=== PATIENT | female | born 2005 | race African-American/Black ===

== ENCOUNTER 2024-10-30 16:08 | Observation (INO) | payer OTHER, SELFPAY ==
--- NOTE | 2024-10-30 16:08 | OBADM ---
This patient, Harjit Luis, admitted to the OB room OB Post 117 for observation. Patient/family oriented to hospital policies and general routines including ID bracelet, bed and alarms, visiting hours, pain management, procedures, bathroom and other care routines, personal items, smoking policy, room service/diet, and visiting hours. Patient/Family are encouraged to report perceived risks to care and to ask questions if they do not understand what they are told or what they should do.
[2024-10-30 16:25] VITALS: BP 106/62; PULSE 80
[2024-10-30 16:30] VITALS: BMI 24.6
[2024-10-30 16:31] VITALS: BP 96/52; PULSE 84
[2024-10-30 16:47] VITALS: BP 92/79; PULSE 94
[2024-10-30 17:02] VITALS: BP 95/49; PULSE 86
[2024-10-30 17:11] LABS: Add Urine Microscopic? YES; Appearance Urine Cloudy (Clear); Bacteria Urine 1+ /hpf; Bilirubin Urine Negative (Negative); Blood Urine Negative (Negative); Color Urine Yellow (Yellow); Glucose Urine UA Negative (Negative); Ketones Urine Negative (Negative); Leukocyte Esterase Ur 3+ LEU/UL (Negative); Mucus Urine Present /lpf; Need Manual Microscopic Reviewed; Nitrate Urine Negative (Negative); Protein Urine Negative (Negative); RBC Urine 0-2 /hpf (0-2); Squamous Epithelial Cell Urine Few /hpf (Few); Urobilinogen Urine 0.2 mg/dL (<2.0); WBC Urine >100 /hpf (0-3); pH Urine 7.5 (5.0-9.0)
[2024-10-30 17:50] VITALS: TEMP 36.5
[2024-10-30] MEDS: NITROFURANTOIN MONOHYD MACROCR 100 MG CAP PO (17:50)
--- NOTE | 2024-11-25 08:05 | PM.OBTRLD ---
OB - Triage/Final Diagnosis Visit Information Comments/Additional reasons for admission: I have assessed the risk for this patient, Harjit Luis, and determined that she would benefit from observation care. Evaluation Laboratory results: Laboratory Tests 10/30/24 16:47 Urine Color Yellow Urine Appearance Cloudy H Urine pH 7.5 Ur Specific [place] 1.010 Urine Protein Negative Urine Glucose (UA) Negative Urine Ketones Negative Ur Blood (Man) Negative Urine Nitrate Negative Urine Bilirubin Negative Urine Urobilinogen 0.2 Ur Leukocyte Esterase 3+ H Add Ur Microanalysis Reviewed Urine RBC 0-2 Urine WBC >100 H Ur Squamous Epith Cells Few Urine Bacteria 1+ H Urine Casts 3-5 Urine Mucus Present Final Diagnosis (1) False labor: Code(s): O47.9 - False labor, unspecified Status: Acute
== END 2024-10-30 17:50 | disposition home or self-care (01) ==
PROVIDERS: Admitting Provider Obstetrics & Gynecology; Visit Provider Obstetrics & Gynecology
DX: O47.03 False labor before 37 completed weeks of gestation, third trimester (principal); Z3A.31 31 weeks gestation of pregnancy
CPT/HCPCS: 81001; 87086; A9270; G0378; G0379

== ENCOUNTER 2025-11-04 17:29 | Emergency (ER) | payer OTHER, SELFPAY ==
[2025-11-04 17:31] VITALS: BP 91/61; PULSE 83; RESP 16; TEMP 36.4; O2SAT 100
--- OUTSIDE RECORDS SUMMARY | 2025-11-04 17:31 | XMS_ITS | Clinical Summary ---
Author Organization [facility] Address [address] [place] [address] Care Team Providers Care Brilliandeer Looper Name Role Phone Vik Peacock MD Unavailable No, Physician Primary Care Provider [phone] Allergies No known active allergies Medications PNV no.153/FA/om3/d velez/epa/fish ( GUMMIES ORAL) Take 1 tablet/chew tab by mouth daily Active docusate sodium (COLACE) 100 mg capsuleIndicati ons:constipatio n,Stool Softener Take 1 capsule (100 mg total) by mouth 2 (two) times a day 30 capsule 12/22/2024 Active acetaminophen 500 mg capsuleIndicati ons:Pain Take 2 capsules (1,000 mg total) by mouth every 6 (six) hours as needed for pain 60 tablet 12/22/2024 Active ibuprofen (ADVIL,MOTRIN) 600 mg tabletIndicatio ns:Pain Take 1 tablet (600 mg total) by mouth every 6 (six) hours as needed for pain 60 tablet 12/22/2024 Active cyclobenzaprine (FLEXERIL) 5 mg tablet Take 1 tablet (5 mg total) by mouth 3 (three) times a day as needed for muscle spasms 30 tablet 12/22/2024 Active Active Problems Problem Noted Date Diagnosed Date care following vaginal delivery 12/20 Overview (12/22/2024): # ID: Afebrile. No signs/symptoms of infection. #Varicella NI: declines varivax. # Heme: QBL 200 mL. Hemodynamically stable. #ESTEBAN: Diagnosed in 2T labs. Iron studies with low iron and ferritin. S/p iron transfusion 12/01. Admit hgb 9.4, 9.6 PPD1. Will start PO iron every other day. # CV/Pulm: Normotensive with 1 MR BP immediately following delivery, otherwise vital signs stable, within normal limits. CBC/CMP unremarkable. # GI/: Tolerating PO. Voiding spontaneously. #Transaminitis: Noted on admission AST/ALT 51/39, BPs normotensive. Repeat CMP /. # Pain: Controlled with above regimen. # MOC: Desires patch, condoms for bridge . # MOF: . Urine drug screen not indicated. Patient informed of results: N/A. # Post DVT prophylaxis: The patient has the following MAJOR risk factors none and the following MINOR risk factors none. SCDs ordered for VTE prophylaxis. # Disposition: Follow up task sent to [facility] scheduling pool for appointments in 2 and 6 weeks. Desires discharge home today. 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 - Maternal [employer]: found that daughter's 16p12.2 deletion VUS was found to be maternally inherited. Dr. Reyes recommended genetic counseling. Discussed 50% risk of VUS being passed to any children but as it is a VUS, we are not sure if that would cause any disease. Message sent to [facility] Genetics team who cares for her daughter to facilitate GC appt. - 10/27, normal echo and UTD resolved on OB US Plan - Delivery timing and mode should not be impacted by the findings above - desires delivery at [facility]T, IOL at 39 weeks to be scheduled - alter peds at time of induction admit Maternal varicella, non-immune 09/27/2024 Supervision of high-risk , second trime ster 09/27/2024 Overview (11/25/2024): [x] Co-management vs. [] Full MFM Care; [] Red Team [x] Blue Team Referring Provider: Vik Peacock [phone] [] or Medicare Insurance [x] Dating Criteria: [place] 07/04/24 with NAZARIO 12/26/24 [x] Labs: Rh [A+], Ab [negative], Rubella [immune], HIV [non-reactive], HepBSAg [non-reactive], HepBSAb [not done], HepBCAb [not done], RPR [non- reactive], Hep C [non-reactive], Varicella [negative], GC/CT [negative/negative] [x] Aneuploidy Screening: low risk - visualized on her phone [x] Carrier Screening: CF negative [x] Hgb electrophoresis: normal hemoglobin pattern [x] CBC/Hgb: 11.7/37.9/plt 347 [] Early 1hr GTT (if indicated): [x] UCx: 06/09/24: no growth, 10/27- no growth [x] Pap: n/a, <21yo [] LD ASA (if indicated): [] EPDS [ ]; PNBHS referral (if indicated): 2nd Trimester [x] Anatomy ultrasound: anterior placenta, midface hypoplasia, UTDA1 [x] CBC/1hr gtt at 24-28wks: Hgb 8.8, GTT 99 [x] Rhogam at 28 wks (if Rh neg): n/a 3rd Trimester [] CBC/HIV/RPR/T&S: to be completed today [] GBS: to be collected with primary OB at next visit [] GC/CT (if indicated): [] testing: Counseling [x] MOD: IOL scheduled at 39 weeks, 12/19 @ 2300. Desires no students during IOL. [x] Place of delivery: [facility] (patient preference) [x] Epidural: desires to labor w/o epidural. Alternative options discussed. [x] Accepts Blood Products: [] Stop ASA: [x] MOC: patch [x] Method of feeding: breast [x] Gore Seamer (specifically which provider): [x] PP Depression Discussed: [] PP visits scheduled: Vaccines [x] Flu Shot (Jul-Oct): declines [] COVID vaccine: [x] Tdap (27-36wks): 10/07 @ primary OB [x] RSV vaccine (32-36wks): declines [] PP HPV vaccine counseling (<=26 yo): Encounter for supervision of normal in second trimester 07/26/2024 Overview (07/26/2024): 1st Trimester: [x] Dating Criteria: 2T [x] Labs: Rh+, Ab-, RPR NR, HIV NR, HepB NR, STI UCx neg, VZV NI, Rub I 2nd Trimester: [x] Anatomy ultrasound: 07/26/24 complete other than nose, otherwise wnl Defer remainder of care to Dr. Peacock Vaginal candidiasis 06/11/2021 Dentalgia 02/08/2021 Dental infection 02/08/2021 Left wrist tendinitis 12/17/2019 Cervical strain, acute, initial encounter 2019 Urinary tract infection in female 06/27/2019 History of vaginal discharge 06/27/2019 Overview (10/04/2024): She plans to discuss with Dr. Peacock next week and declines exam today. Immunizations Immunization Administration Dates Next Due Varicella 12/21/2024(Deferred: Patient Ref used) Surgical History Surgery Date Site/Laterality Comments NO PAST SURGERIES Medical History Medical History Date Comments Known health problems: none Anemia Family History Medical History Relation Name Comments Cleft palate Daughter Steve Heart defect Daughter Steve ASD and VSD No Known Problems Father Hearing loss Mother right ear, ?res olved Relation Name Status Comments Daughter Steve Alive Father Alive Maternal Grandfather Unknown Maternal Grandmother Unknown Mother Alive Paternal Grandfather Unknown Paternal Grandmother Unknown Social History Tobacco Use Types Packs/Day Years Used Date Smoking Tobacco: Never Cigarettes Smokeless Tobacco: Never Alcohol Use Standard Drinks/Week Comments Not Currently 0 (1 standard drink = 0.6 oz pur e alcohol) [facility] Utilities Answer Date Recorded In the past 12 months has th e electric, gas, oil, or water [employer] threatened to shut off services in your home? No 12/21/2024 Social Connection and Isolation Panel Answer Date Recorded In a typical week, how many times do you talk on the phone with family, friends, or neighbors? More than three times a week 12/21/2024 How often do you get togethe r with friends or relatives? More than three times a week 12/21/2024 How often do you attend [facility] or moravian services? Never 12/21/2024 Do you belong to any clubs o r organizations such as baptism groups, unions, fraternal or athletic groups, or school groups? No 12/21/2024 How often do you attend meet ings of the clubs or organizations you belong to? Never 12/21/2024 Are you , , di vorced, , never , or living with a partner? Never 12/21/2024 AUDIT-C Answer Date Recorded Q1: How often do you have a drink containing alcohol? Never 09/15/2024 Q2: How many drinks containi ng alcohol do you have on a typical day when you are drinking? Patient does not drink Q3: How often do you have si x or more drinks on one occasion? Never 09/15/2024 Overall Financial Resource Strain (CARDIA) Answe r Date Recorded How hard is it for you to pa y for the very basics like food, housing, medical care, and heating? Not hard at all 12/21/2024 PHQ-2 Answer Date Recorded PHQ-2 Total Score (If total score is 3 or more points, staff should administer the PHQ-9) 1 09/15/2024 [facility] - Occupational Stress Questionnaire Answer Date Recorded Do you feel stress - tense, restless, nervous, or anxious, or unable to sleep at night because your mind is troubled all the time - these days? Not at all 09/15/2024 Exercise Vital Sign Answer Date Recorde d On average, how many days pe r week do you engage in moderate to strenuous exercise (like a brisk walk)? 0 days 09/15/2024 On average, how many minutes do you engage in exercise at this level? 0 min 09/15/2024 Hunger Vital Sign Answer Date Recorded Within the past 12 months, y ou worried that your food would run out before you got the money to buy more. Never true 12/21/19 25 Within the past 12 months, t he food you bought just didn't last and you didn't have money to get more. Never true 12/21/2024 PRAPARE - Transportation Answer Date Re corded In the past 12 months, has l ack of transportation kept you from medical appointments or from getting medications? No 12/10 In the past 12 months, has l ack of transportation kept you from meetings, work, or from getting things needed for daily living? No 12/21/2024 Housing Stability Vital Sign Answer Steven e Recorded In the last 12 months, was t here a time when you were not able to pay the mortgage or rent on time? No 12/21/2024 In the past 12 months, how m any times have you moved where you were living? 0 12/21/2024 At any time in the past 12 m [facility], were you homeless or living in a residential (including now)? No 12/21/2024 Personal Safety Answer Date Recorded Have you ever been in or are you currently in a harmful physical or emotional relationship or is someone making you feel afraid or unsafe? Denies 12/19/2024 Comments No Sex and Gender Information Value Date Recorded Sex Assigned at Not on file Legal Sex Female 8:52 PM PUBLIC HEALTH EPIDEMIOLOGIST Gender Identity Not on file Sexual Orientation Not on file Obstetrics History Para Term AB IAB SAB Ectopic Multiple Livin g Live Births 2 2 2 0 2 2 Date Outcome GA Total Labor Labor/2nd/3rd Weight Sex Type Anes PTL Dominique A1 A5 Name Clin 2021 Term 38w 3d 4h 58m 2h 58m/1h 57m/0h 03m 3.004 kg (6 lb 10 oz) F Vag-Sp ont Epidur al N Livin g 9 9 CASSIE ,GIRL CHRIS CAZARES Maged paige, Vik gerard MD Complications:None Delivery Location:[facility] ([facility]) 2024 Term 39w 1d 18h 00m 17h 31m/0h 27m/0h 02m 3.04 kg (6 lb 11.2 oz) F Vagina l Spinal N Livin g 8 9 Mahendra castro, Maty anthony MD Complications:None Delivery Location:[facility] ([facility]LD) Last Filed Vital Signs Vital Sign Reading Time Taken Comments Blood Pressure 121/86 12/22/2024 7:13 AM PUBLIC HEALTH EPIDEMIOLOGIST Pulse 70 12/22/2024 7:13 AM PUBLIC HEALTH EPIDEMIOLOGIST Temperature 36.5 C (97.7 F) 12/22/2024 7:13 AM PUBLIC HEALTH EPIDEMIOLOGIST Respiratory Rate 16 12/22/2024 7:13 AM PUBLIC HEALTH EPIDEMIOLOGIST Oxygen Saturation 97% 12/22/2024 7:13 AM PUBLIC HEALTH EPIDEMIOLOGIST Inhaled Oxygen Concentration - - Weight 79.7 kg (175 lb 11.3 oz) 025 11:42 PM PUBLIC HEALTH EPIDEMIOLOGIST Height 172.7 cm (5' 8) 12/19/2024 11:4 2 PM PUBLIC HEALTH EPIDEMIOLOGIST Body Mass Index 26.72 12/19/2024 11:42 PM PUBLIC HEALTH EPIDEMIOLOGIST Plan of Treatment Health Maintenance Due Date Last Done Comments Cervical Cancer Screening 2004 Meningococcal B Vaccine (2 o f 2 - Bexsero SCDM 2-dose series) 12/19/2020 06/18/2020 Regular Well Visit/Exam 18-64 2022 Chlamydia and Gonorrhea (GC/ CT) Screening 06/11/2022 06/11/2021, 03/19/2020, 12/17/2019 Covid-19 Vaccine (2 - 2024-2 6 season) 2025 04/02/2023 Influenza Vaccine (#1) 2025 10/15/2015 Depression Screening 09/15/2025 09/15/2024 DTaP/Tdap/Td Vaccine (7 - Td or Tdap) 10/07/2031 10/07/2021, 07/20/2015, 04/18/2008, Additional history exists Hepatitis B Screening Completed 2004 , 2004, 2004, Additional history exists Pneumococcal vaccine <65 Completed 005, 2004, 2004, Additional history exists Varicella Vaccines Completed 05/24/2009, 04/17/2005 HPV Vaccines Completed 02/21/2016, 05/2015, 07/20/2015 Meningococcal Vaccine Completed 06/18/2020, 015 Hepatitis C Screening Completed 06/09/2024 Procedures Procedure Name Priority Date/Time Associated Diagnosis Comments HEPATITIS C ANTIBODY Routine 06/09/2024 N. GONORRHOEAE/C. TRACHOMATIS AMPLIFICATION STAT 06/11/2021 9:48 AM CDT from Last 3 Months or Most Recently Relevant to Health Maintenance Results * Hepatitis C antibody Blood (06/09/2024) SCRIBED HCV ab non-reacti ve Blood Vik Peacock MD LAB MICROBIOLOGY - GEN ERAL ORDERABLES Final Result * N. gonorrhoeae/C. trachomatis Amplification Vaginal (06/11/2021 9:48 AM CDT) C. trachomatis Not detected Not detected PARAMJIT HAMILTON (DHRUV) Comment:Testing performed by : [facility], [address] [place] [address]., [id number] N. gonorrhoeae Not detected Not detected PARAMJIT HAMILTON (DHRUV) Comment: Testing performed by the [facility]. This assay detects Chlamydia trachomatis and Neisseria gonorrhoeae by nucleic acid amplification testing (NAAT). This test is approved by the [place] Food and Drug Administration and the performance characteristics have been verified by the laboratory. The performance characteristics of this test have not been evaluated in women or individuals less than 16 years of age. Testing performed by: [facility], [address] [place] [address], [place]., [address] Vaginal (None) 06/11/2021 9: 48 AM CDT 06/11/2021 2:18 PM CDT Antoni GRIGSBY LAB MICROBIOLOGY - GENERAL O RDERABLES Final Result [facility] ([facility] [place]) [address] [facility] Department [place] [address] from Last 3 Months or Most Recently Relevant to Health Maintenance [place] [address] [place] [address] [facility] Advance Directives For more information, please contact: [phone] * Full Code (Latest Code Status on File) Date Activated Date Inactivated Comments 12/20/2024 7:59 PM 12/22/2024 6:47 PM * Full Code Date Activated Date Inactivated Comments 12/19/2024 11:44 PM 12/20/2024 7:59 PM Full CPR in case of cardiopulmonary arrest * Full Code Date Activated Date Inactivated Comments 12/05/2021 9:02 AM 12/07/2021 9:09 PM * Full Code Date Activated Date Inactivated Comments 12/05/2021 2:18 AM 12/05/2021 9:02 AM Full CPR in case of cardiopulmonary arrest Care Teams Brilliandeer Looper Relationship Specialty Start Date End Date No, Physician PCP - General 09/23/24 Vik Peacock MD [address] [place] [address] [place] [address] Paper Folder Obstetrics and Gynecology 12/07/21
--- OUTSIDE RECORDS SUMMARY | 2025-11-04 17:31 | XMS_ITS ---
Author Organization [facility] Address [address] [place] [address] Phone Care Team Providers Care Senior Financial Analyst Name Role Phone Provider, None Primary Care Provider Unavailabl e [facility] Status:Enrolled (Active) Program category:Social Drivers of Health/Community Resource Coordination Start date:12/07/2024 Enrollment date:12/07/2024 Related social drivers of health:Intimate Partner Violence, Social Connections, Alcohol Use, Financial Resource Strain, Depression, Stress, Physical Activity, Food Insecurity, Transportation Needs, Housing Stability, Utilities Continued Care and Services Coordination
--- OUTSIDE RECORDS SUMMARY | 2025-11-04 17:31 | XMS_ITS | Encounter Summary ---
Author Organization [facility] Address [address] [place] [address] Phone Care Team Providers Care Harnessmaker Name Role Phone Vik Peacock Primary Care Provider [phone] Provider, None Primary Care Provider Unavailabl e Encounter Details Date Type Department Care Team (Late st Contact Info) Description 04/08/2023 Lab Requisition [facility] [address] [place] [address] Maninder Cox, PAC [address] [place] [address] Encounter for pre-employment examination Social History Tobacco Use Types Packs/Day Years Used Date Smoking Tobacco: Never Assessed Comments Unknown Sex and Gender Information Value Date Recorded Sex Assigned at Not on file Legal Sex Female 9:58 PM CDT Gender Identity Not on file Sexual Orientation Not on file COVID-19 Exposure Response Date Recorded In the last 10 days, have yo u been in contact with someone who was confirmed or suspected to have Coronavirus/COVID-19? Unable to assess 04/08/2023 11:04 AM CDT documented as of this encounter Plan of Treatment Not on file documented as of this encounter Procedures Procedure Name Priority Date/Time Associated Diagnosis Comments QUANTIFERON-TB GOLD PLUS Routine 04/08/2023 10:10 AM CDT Encounter for pre-employment examination documented in this encounter Results * QUANTIFERON-TB GOLD PLUS (04/08/2023 10:10 AM CDT) NIL CONTROL 0.04 <8.01 IU/mL 04/10/2023 10:15 AM CDT [facility] TB ANTIGEN 1 0.00 <0.35 IU/mL 04/10/2023 10:15 AM CDT [facility] TB ANTIGEN 2 0.00 <0.35 IU/mL 04/10/2023 10:15 AM CDT [facility] MITOGEN CONTROL 9.96 >0.49 IU/mL 04/10/20 10:15 AM CDT [facility] INTEPRETATION TB NEGATIVE NEGATIVE, NEGATIVE (TB antigen response less than 25% of internal negative control value) 04/10/2023 10:15 AM CDT [facility] Comment:No immune response t o Mycobacterium tuberculosis antigens was noted. M. tuberculosis infection unlikely. Blood No Phlebotomy Charged / Unknown 04/08/2023 10:10 AM CDT 04/08/2023 12:43 PM CDT Narrative [facility] - 04/10/2023 10:15 AM CDT A POSITIVE QUANTIFERON-TB GOLD PLUS RESULT SHOULD NOT BE THE SOLE OR DEFINITIVE BASIS FOR DETERMINING INFECTION WITH M.TUBERCULOSIS. Diagnosing or excluding tuberculosis disease, and assessing the probability of LTBI, requires a combination of epidemiological, historical, medical and diagnostic findings (e.g., acid fast bacilli (AFB) smear and culture, chest xray) that should be taken into account when interpreting QFT-Plus results. Furthermore, the magnitude of the measured gamma interferon level cannot be correlated to stage or degree of infection, level of immune responsiveness, or likelihood for progression to active disease. The Nil control adjusts for background (e.g., elevated levels of circulating gamma interferon or presence of heterophile antibodies). The Mitogen control serves as an internal positive control and verifies each specimen tested can produce a gamma interferon response. Low mitogen may occur with insufficient lymphocytes, reduced lymphocyte activity due to improper specimen handling, filling/mixing of the mitogen tube, or inability of the patient's lymphocytes to generate gamma interferon. Infection with other Mycobacteria, including M. kansasii, M. szulgai, and M. marinum, may cause false positive results. A negative QuantiFERON-TB Gold Plus result does not preclude the possibility of M. tuberculosis infection or tuberculosis disease: false negative results can be due to incorrect blood sample collection/ improper handling of the specimen, stage of infection (e.g., specimen obtained prior to the development of cellular immune response), co-morbid conditions which affect immune function, or other individual immunological factors. The minimum number of lymphocytes required for a reliable test has not been established and may also be variable. Diagnostic testing for Mycobacterium tuberculosis using Interferon Gamma Release Assays should follow applicable published guidelines, including when testing in populations such as children, women, and HIV-infected or otherwise immunocompromised individuals. https://www.cdc.gov/tb/publications/guidelines/testing.htm us Maninder Cox PAC IMMUNOLOGY ORDERABLES Final Result [facility] [address] [place] [address], documented in this encounter Visit Diagnoses Diagnosis Encounter for pre-employment examination Health examination of defined subpopulation documented in this encounter Care Teams Harnessmaker Relationship Specialty Start Date End Date Vik Peacock PCP - General Obstetrics & Gynecology 04/08/23 Provider, None [place] PCP - General 05/21/23 documented as of this encounter
--- OUTSIDE RECORDS SUMMARY | 2025-11-04 17:31 | XMS_ITS | Clinical Summary ---
Author Organization [facility] Address [address] [place] [address] Care Team Providers Care Health Information Provider Name Role Phone Basim Lane Primary Care Provider Parvin powers Source Comments [facility] [employer],non-owned Affiliates and Associated Physician Practices is amultiple site organization consisting of ambulatory clinics and hospital sitesin [place], [place], [place] and [place]. This disclosure is being madepursuant to the Care Everywhere program and may not contain all information available regarding this patient. Last updated 18.[facility] [employer] Social History Tobacco Use Types Packs/Day Years Used Date Smoking Tobacco: Never Assessed Comments Unknown Sex and Gender Information Value Date Recorded Sex Assigned at Not on file Legal Sex Female 5:43 AM BUSINESS ADVISOR Gender Identity Not on file Sexual Orientation Not on file Plan of Treatment Health Maintenance Due Date Last Done Comments HIV SCREENING 2019 HPV VACCINE (1 - 3-dose series) 2019 CHLAMYDIA/GONORRHEA SCREENING 2020 MENINGOCOCCAL (Group B) VACC INE SHARED DECISION-MAKING (1 of 2 - Standard) 2020 HEPATITIS C SCREENING 03/09/2022 DTAP/TDAP/TD VACCINES (1 - Tdap) 2023 HEPATITIS B VACCINE (1 of 3 - 19+ 3-dose series) 2023 DEPRESSION SCREENING 11/09/2024 COVID-19 VACCINE ( - 2024-2 6 season) 2025 INFLUENZA VACCINE (#1) 2025 ZOSTER VACCINE (1 of 2) 2054 HIB VACCINE Aged Out No longer eligi ble based on patient's age to complete this topic MENINGOCOCCAL GROUPS A/C/Y/W VACCINE Aged Out No longer eligible b ased on patient's age to complete this topic PNEUMOCOCCAL VACCINE Aged Out No long er eligible based on patient's age to complete this topic Insurance MEDICAID - [place] Care Teams Health Information Provider Relationship Specialty Start Date End Date Basim Lane PCP - General Pediatrics 09/02/12
--- OUTSIDE RECORDS SUMMARY | 2025-11-04 17:31 | XMS_ITS | Clinical Summary ---
Author Organization [facility] Address [address] [place] [address] Phone Care Team Providers Care Tank Calibrator Name Role Phone Provider, None Primary Care Provider Unavailabl e Allergies No known active allergies Medications No known medications Social History Tobacco Use Types Packs/Day Years Used Date Smoking Tobacco: Never Smokeless Tobacco: Never Tobacco Cessation:Counseling Given: Not Answered Alcohol Use Standard Drinks/Week Comments Yes 0 (1 standard drink = 0.6 oz pur e alcohol) every other weekend 2 drinks Comments Unknown Sex and Gender Information Value Date Recorded Sex Assigned at Not on file Legal Sex Female 9:58 PM CDT Gender Identity Not on file Sexual Orientation Not on file Last Filed Vital Signs Vital Sign Reading Time Taken Comments Blood Pressure 109/84 08/08/2024 9:06 PM CDT Pulse 72 08/08/2024 9:06 PM CDT Temperature 35.9 C (96.6 F) 08/08/2024 7:29 PM CDT Respiratory Rate 18 08/08/2024 9:06 PM CDT Oxygen Saturation 100% 08/08/2024 9:06 PM CDT Inhaled Oxygen Concentration - - Weight 65.8 kg (145 lb) 08/08/2024 7:29 PM CDT Height 172.7 cm (5' 8) 08/08/2024 7:29 PM CDT Body Mass Index 22.05 08/08/2024 7:29 PM CDT Plan of Treatment Health Maintenance Due Date Last Done Comments Hepatitis C Virus (HCV) Screening 2004 Meningococcal B Immunization (2 of 2 - Bexsero SCDM 2-dose series) 12/19/2020 06/18/2020 Pap Smear 2025 Influenza Immunization (#1) 2025 10/15/2015 SARS-COV-2 Immunization ( season) 2025 04/02/2023, 04/02/2023 Respiratory Syncytial Virus (RSV) Immunization (Adult) (1 - 1-dose 75+ series) 2079 Hepatitis B Immunization Completed 004, 2004, 2004 Pneumococcal Immunization Combined Aged Out 04/17/2005, 2004, 2004, Additional history exists No longer eligible based on patient's age to complete this topic Varicella Immunization Completed 05/24/2009, 2004 Human Papillomavirus (HPV) Immunization Completed 02/21/2016, 10/15/2015, 07/20/2015 Meningococcal Immunization (ACWY) Completed 06/18/2020, 07/20/2015 DTaP/Tdap/Td Immunization Discontinued 2020, 07/20/2015, 04/18/2008, Additional history exists TdaP Immunization Completed 10/07/2021, 07/20/2015 Rotavirus Immunization Aged Out No lo nger eligible based on patient's age to complete this topic Insurance MEDICAID [place] * Guarantor: [facility] Account Type Relation to Patient Date of Phone Billing Address Institutional Other [address] [place] [address] Care Teams Tank Calibrator Relationship Specialty Start Date End Date Provider, None [place] PCP - General 05/21/23
[2025-11-04 18:24] LABS: Influenza A QL RT-PCR Positive (Negative); Influenza B QL RT-PCR Negative (Negative); RSV RNA, RT-PCR Negative (Negative); SARS-CoV-2 RNA PCR Negative (Negative)
--- NOTE | 2025-11-04 18:45 | ED_ITS ---
HPI - General Adult General Chief complaint: Upper Respiratory Infection Stated complaint: i'm sick Time Seen by Provider: 11/04/25 18:45 History of Present Illness HPI narrative: 20-year-old female presents to the emergency department 3 4 days of body Aches congestion sore throat cough. Multiple sick contacts at home with similar symptoms. Related Data Allergies Allergy/AdvReac Type Severity Reaction Status Date / Time No Known Allergies Allergy Verified 11/04/25 17:41 Review of Systems Review of Systems: All systems reviewed & are unremarkable except as noted in HPI and below Exam Narrative: EXAMINATION OF ORGAN SYSTEMS/BODY AREAS: Constitutional: Vital signs per nursing GENERAL:[No acute distress, non-toxic appearing.] HEAD: Normal with no signs of head trauma. EYES: EOMI, conjunctiva normal ENT: Hearing grossly intact LUNGS: Nonlabored breathing. Clear to auscultation bilaterally HEART: [Regular rate and rhythm] ABD: [Soft], [nontender to palpation] EXT: Normal range of motion SKIN: [No rashes or lesions.] NEURO: [Alert. No gross focal sensory or strength deficits.] PSYCH: Normal affect Course Vital Signs Vital signs: Vital Signs Temperature 36.4 C 11/04/25 17:31 Pulse Rate 83 11/04/25 17:31 Respiratory Rate 16 11/04/25 17:31 Blood Pressure 91/61 L 11/04/25 17:31 Pulse Oximetry 100 11/04/25 17:31 Oxygen Delivery Room Air 11/04/25 17:31 Temperature 36.4 C 11/04/25 17:31 Pulse Rate 83 11/04/25 17:31 Respiratory Rate 16 11/04/25 17:31 Blood Pressure 91/61 L 11/04/25 17:31 Pulse Oximetry 100 11/04/25 17:31 Oxygen Delivery Room Air 11/04/25 18:45 MDM Differential Diagnosis Differential Diagnosis: 20-year-old female presents with URI symptoms found to be flu A positive. She is requesting Tamiflu I discussed with her that is unlikely to provide her any benefit given the chronicity of her symptoms while prescribed at her request. Otherwise she has normal breathing had improved plan room air she is otherwise healthy nontoxic appearing. Lab Data [facility] Lab Attestation statement: I personally reviewed the patient's lab results. Labs: Lab Results 11/04/25 Range/Units 17:42 Influenza A (RT-PCR) Positive A (Negative) Influenza B (RT-PCR) Negative (Negative) RSV (RT-PCR) Negative (Negative) SARS-CoV-2 RNA (RT-PCR) Negative (Negative) Discharge Plan Discharge Clinical Impression: Influenza A Patient Disposition: Home Condition: Stable Instructions: Influenza (ED) Patient Language: Afghan Prescriptions: New oseltamivir [Tamiflu] 75 mg capsule 75 mg PO Q12H 5 Days Qty: 10 0RF No Action nitrofurantoin monohyd/m-cryst [Macrobid] 100 mg capsule 100 mg PO Q12H 7 Days Qty: 14 0RF Rx Instructions: must administer with a meal/food Follow-up/Referrals: PHYSICIAN NOT ON STAFF,NONSTAFF [Primary Care Provider] Time of Disposition: 19:11
--- OUTSIDE RECORDS SUMMARY | 2025-11-04 19:02 | XMS_ITS ---
Author Organization [facility] Address [address] [place] [address] Phone Care Team Providers Care Manager Of Patient Name Role Phone Provider, None Primary Care [...]
--- OUTSIDE RECORDS SUMMARY | 2025-11-04 19:02 | XMS_ITS | Encounter Summary ---
Author Organization [facility] Address [address] [place] [address] Care Team Providers Care Casino Controller Name Role Phone Vik Peacock MD Unavailable [phone] No, Physician Primary Care Provider [phone] Encounter Details Date Type Department Care Team (Late st Contact Info) Description 11/30/2024 Social Work [facility] [place] [address] Lucila Caballero LCSW Social History Tobacco Use Types Packs/Day Years Used Date Smoking Tobacco: Never Cigarettes Smokeless Tobacco: Never Alcohol Use Standard Drinks/Week Comments Not Currently 0 (1 standard drink = 0.6 oz pur e alcohol) Social Connection and Isolation Panel Answer Date Recorded In a typical week, how many times do you talk on the phone with family, friends, or neighbors? More than three times a week 09/15/2024 How often do you get togethe r with friends or relatives? More than three times a week 09/15/2024 How often do you attend chur ch or anabaptism services? Never 09/15/2024 Do you belong to any clubs o r organizations such as roman catholic groups, unions, fraternal or athletic groups, or school groups? No 09/15/2024 How often do you attend meet ings of the clubs or organizations you belong to? Never 09/15/2024 Are you , , di vorced, , never , or living with a partner? Never 09/15/2024 AUDIT-C Answer Date Recorded Q1: How often [...] care, and heating? Not hard at all 09/15/2024 PHQ-2 Answer Date Recorded PHQ-2 Total Score (If total score is 3 or more points, staff should administer the PHQ-9) 1 09/15/2024 [facility] - Occupational Stress Questionnaire Answer Date Recorded [...] the money to buy more. Never true 09/15/20 24 Within the past 12 months, t he food you bought just didn't last and you didn't have money to get more. Never true 09/15/2024 PRAPARE - Transportation Answer Date Re corded In the past 12 months, has l ack of transportation kept you from medical appointments or from getting medications? No 05/2024 In the past 12 months, has l ack of transportation kept you from meetings, work, or from getting things needed for daily living? No 09/15/2024 Housing Stability Vital Sign Answer Steven e Recorded In the last 12 months, was t here a time when you were not able to pay the mortgage or rent on time? No 09/15/2024 In the past 12 months, how m any times have you moved where you were living? 0 09/15/2024 At any time in the past 12 m [facility], were you homeless or living in a usp (including now)? No 09/15/2024 Personal Safety Answer Date Recorded Have you ever been in or are you currently in a harmful physical or emotional relationship or is someone making you feel afraid or unsafe? Denies 12/01/2024 Comments Yes Sex and Gender Information Value Date Recorded Sex Assigned at Not on file Legal Sex Female 8:52 PM LIME BOILER Gender Identity Not on file Sexual Orientation Not on file documented as of this encounter Miscellaneous Notes * Plan of Care - Lucila Caballero LCSW - 11/30/2024 3:16 PM CST 11/30/24 2384 Patient Information Information Obtained From Patient I was covering as backup SW and received a consult for transportation assistance for Harjit's appointment tomorrow. I called Harjit (p# [phone]) to discuss. Harjit updated me about her appointment at 6 am and that she doesn't have a ride. She is aware of [place] Medicaid transportation andhas used this in the past but does not have the 3-day notice required for this resource today. I customer services coordinator rdinated [employer] (conf # [id number]) with her preference for a call vs text message for round trip transportation tomorrow with a will call pickup at the conclusion of her appointment. Harjit is aware. SW will remain available. Lucila Caballero LCSW PACT Lens Fabricating Machine Tender [phone] BOILER documented in this encounter Plan of Treatment Not on file documented as of this encounter Visit Diagnoses Not on filedocumented in this encounter Care Teams Casino Controller Relationship Specialty Start Date End Date No, Physician PCP - General 09/23/24 Vik Peacock MD [address] [place] [address] [address] [facility] [address] [place] [address] Math Professor Obstetrics and Gynecology 12/07/21 documented as of this encounter
--- OUTSIDE RECORDS SUMMARY | 2025-11-04 19:02 | XMS_ITS | Clinical Summary ---
Author Organization [facility] Address [address] [place] [address] Phone Care Team Providers Care Shop Tech Name Role Phone Provider, None Primary Care [...] Date of Phone Billing Address Institutional Other [address] [place] [address] Care Teams Shop Tech Relationship Specialty Start Date End Date Provider, None [place] PCP - General 05/21/23
--- OUTSIDE RECORDS SUMMARY | 2025-11-04 19:02 | XMS_ITS | Clinical Summary ---
Author Organization [facility] Address [address] [place] [address] Care Team Providers Care Hydro Excavation Operator Name Role Phone Basim Lane Primary Care Provider Parvin powers Source Comments [facility] [employer],non-owned Affiliates and Associated Physician Practices is amultiple site organization consisting of ambulatory clinics and hospital sitesin [place], [place], [place] and [place]. This disclosure is being madepursuant to the Care Everywhere program and may not contain all information available regarding this patient. Last updated 18.[facility] [employer] Social History Tobacco Use Types Packs/Day Years Used Date Smoking Tobacco: Never Assessed Comments Unknown Sex and Gender Information Value Date Recorded Sex Assigned at Not on file Legal Sex Female 5:43 AM PRODUCTION SHIFT SUPERVISOR Gender Identity Not on file Sexual Orientation [...] topic Insurance MEDICAID [place] Care Teams Hydro Excavation Operator Relationship Specialty Start Date End Date Basim Lane PCP - General Pediatrics 09/02/12
--- OUTSIDE RECORDS SUMMARY | 2025-11-04 19:02 | XMS_ITS | Encounter Summary ---
Author Organization [facility] Address [address] [place] [address] Phone Care Team Providers Care Branch Or Department Chief Librarian Name Role Phone Vik Peacock Primary Care Provider [phone] Provider, None Primary Care Provider Unavailabl e Encounter Details Date Type Department Care Team (Late st Contact Info) Description 04/08/2023 Lab Requisition [facility] [address] [place] [address] Maninder Cox, PAC [address] [place] [address] Encounter for pre-employment examination Social [...] 0.04 <8.01 IU/mL 04/10/2023 10:15 AM CDT [facility] TB ANTIGEN 1 0.00 <0.35 IU/mL 04/10/2023 10:15 AM CDT [facility] TB ANTIGEN 2 0.00 <0.35 IU/mL 04/10/2023 10:15 AM CDT [facility] MITOGEN CONTROL 9.96 >0.49 IU/mL 04/10/20 10:15 AM CDT [facility] INTEPRETATION TB NEGATIVE NEGATIVE, NEGATIVE (TB antigen response less than 25% of internal negative control value) 04/10/2023 10:15 AM CDT [facility] Comment:No immune response t o Mycobacterium tuberculosis antigens was noted. M. tuberculosis infection unlikely. Blood No Phlebotomy Charged / Unknown 04/08/2023 10:10 AM CDT 04/08/2023 12:43 PM CDT Narrative [facility] - 04/10/2023 10:15 AM CDT A POSITIVE [...] Cox PAC IMMUNOLOGY ORDERABLES Final Result [facility] [address] [place] [address], documented in this encounter Visit Diagnoses Diagnosis Encounter for pre-employment examination Health examination of defined subpopulation documented in this encounter Care Teams Branch Or Department Chief Librarian Relationship Specialty Start Date End Date Vik Peacock PCP - General Obstetrics & Gynecology 04/08/23 Provider, None [place] PCP - General 05/21/23 documented as of this encounter
--- OUTSIDE RECORDS SUMMARY | 2025-11-04 19:02 | XMS_ITS | Clinical Summary ---
Author Organization [facility] Address [address] [place] [address] Care Team Providers Care Lead Solutions Architect Name Role Phone Vik Peacock MD Unavailable [phone] No, Physician Primary Care Provider [phone] Allergies No known active allergies Medications PNV [...] # Disposition: Follow up task sent to [facility] scheduling pool for appointments in 2 and 6 weeks. Desires discharge home today. 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 Dr. Reyes recommended genetic counseling. Discussed 50% risk of VUS being passed to any children but as it is a VUS, we are not sure if that would cause any disease. Message sent to [facility] Genetics team who cares for her [...] [x] Blue Team Referring Provider: Vik Peacock [phone] [] or Medicare Insurance [x] Dating Criteria: [...] patch [x] Method of feeding: breast [x] J2Ee Java Developer (specifically which provider): [x] PP Depression Discussed: [...] drink = 0.6 oz pur e alcohol) [facility] Utilities Answer Date Recorded In the past 12 months has th e electric, gas, oil, or water [email or web address] threatened to shut off services in your [...] week 12/21/2024 How often do you attend [facility] or lutheran services? Never 12/21/2024 Do you belong to any clubs o r organizations such as jehovah's witness groups, unions, fraternal or athletic groups, or [...] staff should administer the PHQ-9) 1 09/15/2024 [facility] [place] of Occupat ional Health - Occupational Stress [...] any time in the past 12 m [facility], were you homeless or living in a mcc (including now)? No 12/21/2024 Personal Safety Answer Date Recorded Have you ever been in or are you currently in a harmful physical or emotional relationship or is someone making you feel afraid or unsafe? Denies 12/19/2024 Comments No Sex and Gender Information Value Date Recorded Sex Assigned at Not on file Legal Sex Female 8:52 PM AUTOMATIC CAR WASH ATTENDANT Gender Identity Not on file Sexual Orientation [...] Mahendra castro, Maty anthony MD Complications:None Delivery Location:[facility] ([facility]) Last Filed Vital Signs Vital Sign Reading Time Taken Comments Blood Pressure 121/86 12/22/2024 7:13 AM AUTOMATIC CAR WASH ATTENDANT Pulse 70 12/22/2024 7:13 AM AUTOMATIC CAR WASH ATTENDANT Temperature 36.5 C (97.7 F) 12/22/2024 7:13 AM AUTOMATIC CAR WASH ATTENDANT Respiratory Rate 16 12/22/2024 7:13 AM AUTOMATIC CAR WASH ATTENDANT Oxygen Saturation 97% 12/22/2024 7:13 AM AUTOMATIC CAR WASH ATTENDANT Inhaled Oxygen Concentration - - Weight 79.7 kg (175 lb 11.3 oz) 025 11:42 PM AUTOMATIC CAR WASH ATTENDANT Height 172.7 cm (5' 8) 12/19/2024 11:4 2 PM AUTOMATIC CAR WASH ATTENDANT Body Mass Index 26.72 12/19/2024 11:42 PM AUTOMATIC CAR WASH ATTENDANT Plan of Treatment Health Maintenance Due Date [...] PARAMJIT HAMILTON ([facility]UV) Comment:Testing performed by : , [address] [place] [address]., [address] N. gonorrhoeae Not detected Not detected PARAMJIT HAMILTON ([facility]HRUV) Comment: Testing performed by the Laboratory. This assay detects Chlamydia trachomatis and Neisseria gonorrhoeae by nucleic acid amplification testing (NAAT). This test is approved by the [place] Food and Drug Administration and the performance characteristics have been verified by the laboratory. The performance characteristics of this test have not been evaluated in women or individuals less than 16 years of age. Testing performed by: , [address] [place] [address], [place]., [address] Vaginal (None) 06/11/2021 9: 48 AM CDT 06/11/2021 2:18 PM CDT [facility] MICROBIOLOGY - GENERAL O RDERABLES Final Result [facility] ([place]) [address] [facility] Department [place] [address] from Last 3 Months or Most Recently Relevant to Health Maintenance Insurance [place] [address] [facility] Advance Directives For more information, please contact: [phone] * Full Code (Latest Code Status on [...] in case of cardiopulmonary arrest Care Teams Lead Solutions Architect Relationship Specialty Start Date End Date No, Physician PCP - General 09/23/24 Vik Peacock MD [address] [place] [address] [place] [address] Hand Printed Circuit Board Assembler Obstetrics and Gynecology 12/07/21
[2025-11-04] MEDS: IBUPROFEN 400 MG TABLET 800 MG PO (19:17)
== END 2025-11-04 19:19 | disposition home or self-care (01) ==
PROVIDERS: Emergency Medicine; Emergency Provider Emergency Medicine
DX: J10.1 Influenza due to other identified influenza virus with other respiratory manifestations (principal); Z20.822 Contact with and (suspected) exposure to COVID-19
CPT/HCPCS: 87637; 99283; A9270